=== PATIENT | female | born 1990 | race Caucasian/White ===

== ENCOUNTER 2017-06-27 12:36 | Inpatient (IN) ==
--- NOTE | 2017-06-27 11:22 | OB/GYN History & Physical ---
Date of Encounter: 06/27/17 Time of Encounter: 11:17 Assessment and Plan (1) Pyelonephritis affecting in second trimester Current visit: Yes Status: Acute Patient presents with Right flank pain that is constant for 1 day, fever, chills , nausea with vomiting x1. Febrile with extreme tenderness to palpation of right flank. Decreased UOP with increased frequency. WBC 16.1 SCr 0.67, GFR>60 UA: +nitrite, mod leuk est, micro wbc TNTC, many bacteria, Glucose >=1000, ketones 40--sent for UC Plan: -Admit to antepartum for IV abx -Ceftriaxone 1gm Q24 -IV bolus LR then MIVF LR @125/hr - Vit Daily -Tylenol 650mg Q6h prn -Zofran PRN -Regular Diet -VS per unit protocol -Daily FHT -SCDs (2) 21 weeks gestation of Current visit: Yes Status: Chronic (3) Tobacco use during Current visit: Yes Status: Chronic Qualifiers: Trimester: second trimester Qualified Code(s): O99.332 - Smoking (tobacco) complicating , second trimester History of Present Illness Chief complaint: Right flank pain HPI: Ms. Hernandez is a 27 year old female A1 at 21 and 2/7 who presents to L&D complaining of right sided back pain. She states that the pain started yesterday morning and got worse throughout the day. At noon she took tylenol and it helped for a while, but at 1800 the pain "came back with a vengence." She states that it is a sharp, constant pain at her ribs that radiates down her leg and is present at rest. She has alternated between feeling chilled and hot. She has myalgias and states it "feels like I have the flu." She did vomit x1 yesterday and was nauseated after that she thinks was secondary to pain. She also has had a cough and decreased appetite. She states she has had urinary frequency, but not much comes out every time she feels like urinating. She was also struggling with constipation and has started taking her every other day and finally was able to have 4 BMs yesterday, which were painful. She denies burning, pain, or foul odor with urination. She denies ear, nose, throat pain, wheezing, SOB, CP, palpitations, abdominal pain, diarrhea, rash, vaginal bleeding/clear fluid, vaginal itching or foul odor. She has been feeling baby move. She notes hx of miscarriage prior to this and was on progesterone throughout the first trimester. She notes no complications or issues during this . She is a current every day smoker of 0.5 PPD. Past Med Surg Social Fam HX - Past Medical History Source: patient Medical history: non-contributory Psychiatric history: no psych history - Past Surgical History Surgical History: other - Social History Smoking Status: Current every day smoker Packs per day: 0.5 Smokeless Tobacco Status: No Alcohol use: heavy Drug use: none Occupational status: employed Current living situation: Home, With Family Activity Level: Independent ambulation Recent Out of Country Travel Within the Last 8 Weeks: No Exposure or Possible Exposure to Illness During Travel: No - Family History Mother Adopted: No Hx Family Cardiac Disorders: No Hx Family Respiratory Disorders: No Hx Family Cancer: No Hx Family GI Disorders: No Hx Family Genitourinary Disorders: No Hx Family Endocrine Disorder: No Hx Family Musculoskeletal Disorders: No Hx Family Neuromuscular Disorders: No Hx Family Neurologic Disorders: No Hx Family HEENT Disorders: No Hx Family Autoimmune Disorders: No Hx Family Reproductive Disorders: No Hx Family Psychosocial Disorders: No Hx Family Medical Disorders: No Obstetrical History - Pregnancies : 2 Para: 0 Term: 0 : 0 Ab's: 1 Livin Medications and Allergies Vit Calc,Iron,Folic [ Vitamins] 1 tab PO DAILY 06/27/17 [ History] 3 Allergy/AdvReac Type Severity Reaction Status Date / Time codeine Allergy Itching Verified 06/27/17 11:05 Review of System OB All systems PM: reviewed and no additional remarkable complaints except as stated Exam - Constitutional Constitutional: well developed, well nourished, average body habitus, mild distress - HEENT HEENT: EOMI, Normocephaly - Neck Neck exam: normal inspection, supple, trachea midline - Lungs Respiratory exam: CTAB - Cardiovascular Cardiovascular exam: +S1, +S2, tachycardia - Abdomen Abdomen: Present: bowel sounds normal, gravid, non tender - Extremities Extremities exam: normal capillary refill, normal inspection, radial pulses palpable and symmetrical - Uterus Uterus exam: Present: enlarged (gravid) - Comments Comments: Right CVA tenderness, tenderness with palpation of the right flank. Results Result Diagrams: 06/27/17 11:20 06/27/17 11:20 Short CBC 06/27/17 Range/Units 11:20 WBC 16.1 H (4.3-11.1) K/mcL Hgb 12.2 (11.5-15.4) g/dL Hct 35.3 (35.3-44.9) % Plt Count 175 (140-400) K/mcL Neutrophils # 14.2 H (1.6-8.9) K/mcL BMP 06/27/17 Range/Units 11:20 Sodium 134 L (136-145) mEq/L Potassium 3.5 (3.5-4.5) mEq/L Chloride 105 (98-109) mEq/L Carbon Dioxide 19 (19-29) mEq/L BUN 6 L (7-20) mg/dL Creatinine 0.67 (0.57-1.11) mg/dL Glucose 95 (70-99) mg/dL Calcium 8.6 (8.6-10.8) mg/dL Urine 06/27/17 Range/Units 11:20 Urine Color Yellow (Yellow) Urine Clarity Hazy A (Clear) Urine pH 6.0 (5.0-8.0) pH Units Ur Specific [place] 1.021 (1.010-1.025) Urine Protein 30 H (Neg-Trace) mg/dL Urine Glucose (UA) >=1000 H (Normal) mg/dL - Attending Attestation I have seen and evaluated Ms Hernandez with the resident physician and agree with the diagnosis and plan for this patient. Plan of care also discussed with Dr. Araujo and he is in agreement as well.
[2017-06-27 11:30] LABS: Basophils % 0.2 %; Hematocrit 35.3 % (35.3-44.9); Hemoglobin 12.2 g/dL (11.5-15.4); Immature Granulocytes % 0.6 % (0-4); Lymphocytes # 0.7 K/mcL (0.6-4.6); Mean Corpuscular HGB Conc 34.6 g/dL (31.6-35.5); Mean Corpuscular Hemoglobin 32.4 pg (28.0-33.3); Mean Corpuscular Volume 93.6 fL (83.0-100.0); Monocytes # 1.1 K/mcL (0.0-1.3); Neutrophils # 14.2 K/mcL (1.6-8.9); Platelet Count 175 K/mcL (140-400); Red Blood Count 3.77 M/mcL (3.82-4.97); Red Cell Distribution Width 11.9 % (11.5-14.5); Segmented Neutrophils % 88.2 %
[2017-06-27 11:34] LABS: Bilirubin,Urine Negative (Negative); Blood,Urine Negative (Negative); Color,Urine Yellow (Yellow); Glucose,Urine (UA) >=1000 mg/dL (Normal); Ketones,Urine 40 mg/dL (Negative); Leukocyte Esterase,Urine Moderate (Negative); Nitrite,Urine Positive (Negative); Protein,Urine 30 mg/dL (Neg-Trace); Specific Gravity,Urine 1.021 (1.010-1.025); Urobilinogen,Urine Normal (Normal)
[2017-06-27 11:36] LABS: Bacteria,Urine Many per hpf (None-Few); Hyaline Casts,Urine None Seen per lpf (None-Few); Squamous Epithelial Cell,Urine Many per lpf (None-Few); WBC,Urine TNTC per hpf (0-3)
[2017-06-27 11:41] LABS: BUN/Creatinine Ratio 9 (6-26); Blood Urea Nitrogen 6 mg/dL (7-20); Carbon Dioxide 19 mEq/L (19-29); Chloride 105 mEq/L (98-109); Clarity,Urine Hazy (Clear); Potassium 3.5 mEq/L (3.5-4.5); Sodium 134 mEq/L (136-145); eGFR For African Americans > 60 (> 60)
[2017-06-27 11:42] LABS: Calcium 8.6 mg/dL (8.6-10.8); Glucose 95 mg/dL (70-99); Osmolality,Calculated 275 (280-300); eGFR For Non-African Americans > 60 (> 60)
[2017-06-27 12:13] LABS: Amphetamine Screen,Urine Negative ng/mL (Cutoff=1000); Barbiturate Screen,Urine Negative ng/mL (Cutoff=200); Benzodiazepines Screen,Urine Negative ng/mL (Cutoff=200); Cannabinoid Screen,Urine Negative ng/mL (Cutoff = 50); Cocaine Screen,Urine Negative ng/mL (Cutoff= 300); Opiate Screen,Urine Negative ng/mL (Cutoff=300); Phencyclidine Screen,Urine Negative ng/mL (Cutoff=25)
[~2017-06-27 12:36] MED LIST: Ondansetron 4 MG/2 ML VIAL IVP PRN; Ringers Solution, Lactated 1,000 ML IVC ONE; Ringers Solution, Lactated 1,000 ML IVC SCH
[2017-06-27] MEDS: Acetaminophen 325 MG TABLET PO PRN ×2 (12:48→18:51)
[2017-06-27] MEDS: *HR* HYDROmorphone 2 MG/ML SYRINGE IVP PRN ×3 (15:45→23:31)
[2017-06-27] MEDS ORDERED: Ringers Solution, Lactated 1,000 ML ONE (21:57)
[2017-06-28] MEDS: Acetaminophen 325 MG TABLET PO PRN ×3 (02:27→20:36)
[2017-06-28 06:27] LABS: Basophils % 0.2 %; Hematocrit 30.5 % (35.3-44.9); Hemoglobin 10.7 g/dL (11.5-15.4); Immature Granulocytes % 0.8 % (0-4); Lymphocytes # 0.7 K/mcL (0.6-4.6); Lymphocytes % 3.6 %; Mean Corpuscular HGB Conc 35.1 g/dL (31.6-35.5); Mean Corpuscular Hemoglobin 33.2 pg (28.0-33.3); Mean Corpuscular Volume 94.7 fL (83.0-100.0); Mean Platelet Volume 11.2 fL (9.4-12.4); Monocytes # 1.3 K/mcL (0.0-1.3); Monocytes % 6.8 %; Neutrophils # 17.5 K/mcL (1.6-8.9); Platelet Count 131 K/mcL (140-400); Red Blood Count 3.22 M/mcL (3.82-4.97); Segmented Neutrophils % 88.6 %
[2017-06-28] MEDS ORDERED: Ringers Solution, Lactated 1,000 ML ONE (07:10)
--- NOTE | 2017-06-28 08:18 | OB/GYN Progress Note ---
Date of Encounter: 06/28/17 Time of Encounter: 08:18 - Assessment and Plan (1) Pyelonephritis affecting in second trimester Current Visit: Yes Status: Acute Patient better today, continues to have right flank pain worse with full bladder , Afebrile since 0230 UA: +nitrite, mod leuk est, micro wbc TNTC, many bacteria, Glucose >=1000, ketones 40 UC: E. coli, sensitivities pending WBC 19.8 >16.1 Plan: -Ceftriaxone 1gm Q24 -Start Gentamicin 90mg Q8hr -Renal US -Discontinue IVF, encourage good PO intake -CBC in AM - Vit Daily -Tylenol 650mg Q6h prn -Zofran PRN -Regular Diet -VS per unit protocol -Daily FHT -SCDs (2) 21 weeks gestation of Current Visit: Yes Status: Chronic (3) Tobacco use during Current Visit: Yes Status: Chronic Qualifiers: Trimester: second trimester Qualified Code(s): O99.332 - Smoking (tobacco) complicating , second trimester Subjective - Subjective Principal diagnosis: Pyelonephritis Interval history: Patient states that she feels much better today. She had a fever overnight, but has not since her tylenol. She had some nausea, but it is getting better with eating. She is tolerating food well. She has some mild myalgias and right flank pain that is worse with having to urinate. Antepartum ROS: movement normal Objective - Vital Signs Vital Signs: Vital Signs Temp Pulse Pulse Resp BP Pulse Ox 06/28/17 07:41 97.6 F 78 12 88/58 97 06/28/17 04:30 97.7 F 87 16 101/55 97 06/28/17 02:30 100.2 F H 06/27/17 23:25 97.9 F 92 16 99/58 99 06/27/17 22:04 98.0 F 06/27/17 18:53 102 F H 109 18 113/58 94 06/27/17 15:00 99.6 F 94 16 105/70 97 06/27/17 12:37 100.4 F H 99 16 117/69 95 06/27/17 12:36 99 14 Intake and Output 06/27/17 06/28/17 06/28/17 23:59 07:59 15:59 Output Total 700 / 700 250 / 250 Balance -700 / -700 -250 / -250 Output: Urine 700 / 700 250 / 250 Other: Stool Characteristics Normal for Patient Weight 51.982 kg Patient Weight 06/28/17 23:59 Weight 51.982 kg - Exam Auscultation: bilateral: normal Abdomen: Present: normal appearance, soft, gravid Uterus: Present: normal Comments: General: Patient appears well, alert and oriented x3 Heart: RRR w/o MRG, no edema Lungs: CTAB Abdomen: soft, non-tender, BS normal, gravid Back: CVA tenderness on the right Skin: warm, dry - Labs Labs: Abnormal lab results WBC 19.8 K/mcL (4.3-11.1) H 06/28/17 06:05 RBC 3.22 M/mcL (3.82-4.97) L 06/28/17 06:05 Hgb 10.7 g/dL (11.5-15.4) L D 06/28/17 06:05 Hct 30.5 % (35.3-44.9) L 06/28/17 06:05 Plt Count 131 K/mcL (140-400) L 06/28/17 06:05 Neutrophils # 17.5 K/mcL (1.6-8.9) H 06/28/17 06:05 Sodium 134 mEq/L (136-145) L 06/27/17 11:20 BUN 6 mg/dL (7-20) L 06/27/17 11:20 Calculated Osmolality 275 (280-300) L 06/27/17 11:20 Urine Clarity Hazy (Clear) A 06/27/17 11:20 Urine Protein 30 mg/dL (Neg-Trace) H 06/27/17 11:20 Urine Glucose (UA) >=1000 mg/dL (Normal) H 06/27/17 11:20 Urine Ketones 40 mg/dL (Negative) H 06/27/17 11:20 Urine Nitrite Positive (Negative) A 06/27/17 11:20 Ur Leukocyte Esterase Moderate (Negative) H 06/27/17 11:20 Urine Microscopic RBC 3-5 per hpf (0-3) H 06/27/17 11:20 Urine Microscopic WBC TNTC per hpf (0-3) H 06/27/17 11:20 Ur Squamous Epith Cells Many per lpf (None-Few) H 06/27/17 11:20 Urine Bacteria Many per hpf (None-Few) H 06/27/17 11:20 Ur Culture Indicated? YES (NO) A 06/27/17 11:20 Attestation: My signature below is to certify that this patient is under my care and that I had a [id number] encounter with this patient. Contreras Angel CNM
[2017-06-28] MEDS: *HR* HYDROmorphone 2 MG/ML SYRINGE IVP PRN ×2 (09:33→12:38)
[2017-06-28] MEDS: Prenatal Vit/FA 1 EACH TABLET PO SCH (09:34)
[2017-06-28] MEDS: Gentamicin 90 MG in 0.9 % Sodium Chloride 100 ML IVPB SCH ×2 (10:09→18:01)
[2017-06-28] MEDS ORDERED: *HR* Nalbuphine 20 MG/ML AMPUL IVP PRN (17:36)
[2017-06-28] MEDS: Ringers Solution, Lactated 1,000 ML IVC SCH (18:02)
[2017-06-29] MEDS: Gentamicin 90 MG in 0.9 % Sodium Chloride 100 ML IVPB SCH ×2 (02:15→10:10)
[2017-06-29] MEDS: Acetaminophen 325 MG TABLET PO PRN ×2 (02:24→08:44)
[2017-06-29] MEDS: Ringers Solution, Lactated 1,000 ML IVC SCH (05:32)
[2017-06-29 06:11] LABS: Hemoglobin 9.2 g/dL (11.5-15.4); Mean Corpuscular HGB Conc 34.1 g/dL (31.6-35.5); Mean Corpuscular Hemoglobin 32.4 pg (28.0-33.3); Mean Corpuscular Volume 95.1 fL (83.0-100.0); Mean Platelet Volume 11.3 fL (9.4-12.4); Platelet Count 103 K/mcL (140-400); Red Blood Count 2.84 M/mcL (3.82-4.97); Red Cell Distribution Width 12.2 % (11.5-14.5)
[2017-06-29 07:45] VITALS: BP 96/59
[2017-06-29] MEDS: Prenatal Vit/FA 1 EACH TABLET PO SCH (08:43)
--- NOTE | 2017-06-29 09:50 | Discharge Summary ---
Date of Encounter: 06/29/17 Time of Encounter: 09:50 - Discharge Diagnosis (1) Tobacco use during Priority: Secondary Status: Chronic Comments: Smoking cessation education offered. (2) Pyelonephritis affecting in second trimester Priority: Primary Status: Acute Comments: Treated with IV antibiotics Discharge with RX of Macrobid x 7 days (3) 21 weeks gestation of Priority: Secondary Status: Chronic Comments: Admitted for pyelonephritis. FHT as ordered. - Discharge Medications Prescriptions: Nitrofurantoin Monohyd/M-Cryst [Macrobid 100 mg Capsule] 100 mg PO BID #14 capsule Home Medications: Vit Calc,Iron,Folic [ Vitamins] 1 tab PO DAILY 06/27/17 [ History] Acetaminophen [Tylenol] 650 mg PO Q6HR PRN tablet 06/29/17 [Rx] Nitrofurantoin Monohyd/M-Cryst [Macrobid 100 mg Capsule] 100 mg PO BID #14 capsule 06/29/17 [Rx] Allergies/Adverse Reactions: 3 Allergy/AdvReac Type Severity Reaction Status Date / Time codeine Allergy Itching Verified 06/27/17 11:05 Data Procedures and tests throughout hospitalization: Laboratory Tests 06/27/17 06/27/17 06/27/17 11:20 11:20 11:20 WBC 16.1 H RBC 3.77 L Hgb 12.2 Hct 35.3 MCV 93.6 MCH 32.4 MCHC 34.6 RDW 11.9 Plt Count 175 MPV 11.0 Immature Gran % 0.6 Seg Neutrophils % 88.2 Lymphocytes % 4.0 Monocytes % 7.0 Eosinophils % 0.0 Basophils % 0.2 Neutrophils # 14.2 H Lymphocytes # 0.7 Monocytes # 1.1 Eosinophils # 0.0 Basophils # 0.0 Sodium Potassium Chloride Carbon Dioxide BUN Creatinine Est GFR ( Amer) Est GFR (Non-Af Amer) BUN/Creatinine Ratio Glucose Calculated Osmolality Calcium Urine Color Yellow Urine Clarity Hazy A Urine pH 6.0 Ur Specific [place] 1.021 Urine Protein 30 H Urine Glucose (UA) >=1000 H Urine Ketones 40 H Urine Blood Negative Urine Nitrite Positive A Urine Bilirubin Negative Urine Urobilinogen Normal Ur Leukocyte Esterase Moderate H Urine Microscopic RBC 3-5 H Urine Microscopic WBC TNTC H Ur Squamous Epith Cells Many H Urine Bacteria Many H Hyaline Casts None Seen Ur Culture Indicated? YES A Urine Opiates Screen Negative Ur Barbiturates Screen Negative Ur Phencyclidine Scrn Negative Ur Amphetamines Screen Negative U Benzodiazepines Scrn Negative Urine Cocaine Screen Negative U Marijuana (THC) Screen Negative 06/27/17 06/28/17 06/29/17 11:20 06:05 05:57 WBC 19.8 H 11.6 H RBC 3.22 L 2.84 L Hgb 10.7 L D 9.2 L D Hct 30.5 L 27.0 L MCV 94.7 95.1 MCH 33.2 32.4 MCHC 35.1 34.1 RDW 12.0 12.2 Plt Count 131 L 103 L MPV 11.2 11.3 Immature Gran % 0.8 Seg Neutrophils % 88.6 Lymphocytes % 3.6 Monocytes % 6.8 Eosinophils % 0.0 Basophils % 0.2 Neutrophils # 17.5 H Lymphocytes # 0.7 Monocytes # 1.3 Eosinophils # 0.0 Basophils # 0.0 Sodium 134 L Potassium 3.5 Chloride 105 Carbon Dioxide 19 BUN 6 L Creatinine 0.67 Est GFR ( Amer) > 60 Est GFR (Non-Af Amer) > 60 BUN/Creatinine Ratio 9 Glucose 95 Calculated Osmolality 275 L Calcium 8.6 Urine Color Urine Clarity Urine pH Ur Specific [place] Urine Protein Urine Glucose (UA) Urine Ketones Urine Blood Urine Nitrite Urine Bilirubin Urine Urobilinogen Ur Leukocyte Esterase Urine Microscopic RBC Urine Microscopic WBC Ur Squamous Epith Cells Urine Bacteria Hyaline Casts Ur Culture Indicated? Urine Opiates Screen Ur Barbiturates Screen Ur Phencyclidine Scrn Ur Amphetamines Screen U Benzodiazepines Scrn Urine Cocaine Screen U Marijuana (THC) Screen Labs on day of discharge: Labs from last 24 hours 06/29/17 05:57 WBC 11.6 H RBC 2.84 L Hgb 9.2 L D Hct 27.0 L MCV 95.1 MCH 32.4 MCHC 34.1 RDW 12.2 Plt Count 103 L MPV 11.3 - Impressions ITS Impressions Retroperitoneum Ultrasound 06/28/17 08:30 IMPRESSION: Mild bilateral hydronephrosis. Normal sonographic appearance of the kidneys and bladder. D/ / 06/28/2017 09:37:23 Lidya Kang MD / faizan Interpreting Provider: Lidya Kang MD Date of admission: 06/27/17 10:38 Primary care physician: PCP NONE Discharging clinician: Mirian Weber Anticipated date of discharge: 06/29/17 - Patient Status Disposition: Home, Self-Care Condition: Good Functional capacity at discharge: independent ambulation - Discharge Instructions Follow Up With: NONE,PCP [Primary Care Provider] - - Diet and Activity Activity: increase activity as tolerated Diet: advance to your usual diet Hospital Course [facility] [place] [facility] Hospital course: Pt resting in bed. Denies pain at this time. States she has mild pain occasionally. Encouraged to continue Tylenol once she goes home. Plan of care discussed. Patient aware she will be discharged after her noon dose of antibiotics and is agreeable with this plan. Informed she will be discharged with a Rx for Macrobid that she will need to take twice daily for 7 days. Pt verbalized understanding. States she has an appointment with Dr. Callahan in approximately 3 weeks. Time Attestation: Total time spent providing and/or coordinating discharge services: Time Spent: Less than 30 minutes Exam - Constitutional Vitals: Temp Pulse Resp BP Pulse Ox 97.8 F 77 16 96/59 94 06/29/17 07:44 06/29/17 07:44 06/29/17 07:44 06/29/17 07:44 06/29/17 04:00 General appearance IM: A&O X 3, pleasant, no acute distress - Respiratory Respiratory exam: Present: CTAB - Cardiovascular Cardiovascular exam IM: Present: RRR, +S1, +S2 - GI/Abdominal GI/Abdominal exam IM: normal bowel sounds, soft - Rectal Rectal exam: deferred - Extremities Exam Extremities exam IM: Present: full ROM, normal capillary refill, normal inspection - Neurological Exam Neurological exam: oriented X3 - VTE Reasons for not Prescribing Prophylaxis: Treatment not Indicated - Low risk for VTE Documentation of Mechanical Device: Intermittent pneumatic compression device
[2017-06-29] MEDS ORDERED: Aminoglycoside Consult 1 EACH MC ONE (13:56)
== END 2017-06-29 13:57 | disposition home or self-care (01) | DRG 566 ==
LOC: 1NENULAB → 1NENUOBS 12:36
PROVIDERS: ADMIT Obstetrics & Gynecology; ATTEND Obstetrics & Gynecology

== ENCOUNTER 2017-10-25 10:14 | Observation (INO) ==
--- NOTE | 2017-10-25 10:55 | OB/GYN History & Physical ---
Date of Encounter: 10/25/17 Time of Encounter: 10:49 Assessment and Plan (1) Headache Status: Acute Addendum: PIH labs normal UPC ratio normal NST reactive UDS negative Offered norco, declines Accepts single po dose of magnesium and tylenol Follow up in office for routine care as scheduled. Patient with headache that started at midnight. We will perform PIH rule out at this time. Patient denies any concerns or complaints this time. Headache 6 out of 10 at this time. Qualifiers: Headache type: unspecified Headache chronicity pattern: acute headache Intractability: intractable Qualified Code(s): R51 - Headache (2) 38 weeks gestation of Status: Acute Patient 38 weeks 3 days gestation. Denies any vaginal bleeding, cramping or pain. Will place patient on monitor and perform PIH work up at this time. (3) Tobacco use during Status: Chronic Patient smokes 5 cigarettes per day. Will provide nicotine patch as needed. Qualifiers: Trimester: third trimester Qualified Code(s): O99.333 - Smoking (tobacco) complicating , third trimester History of Present Illness Chief complaint: New headache onset HPI: Ms. Hernandez is a 27 year old female 010 presenting to labor and delivery chief complaint of headache. Patient has a history of one spontaneous in November 2016. She is blood type B-. Rubella immune. Group B negative, HIV negative, Treponema negative. She failed her 1 hour glucose test but passed her 3 hour glucose test. She does abuse tobacco throughout this without 5 cigarettes per day. She is 38 weeks 3 days. Patient states for the last 3 nights between 11 PM and midnight she has woken up and nausea and vomiting. She states this she felt in the beginning of her with morning sickness. Patient states last evening around this time she woke up with a severe 10 out of 10 headache located in the left frontal area. She took Tylenol but the headache has not gone away. She was told to come to labor and delivery of her headache did not resolve with Tylenol. Patient states her pain is now 6-7 out of 10. Acute left frontal area. Does not radiate. No neurological findings. No dizziness. No chest pain, fevers or recent illnesses. Denies any vaginal bleeding, cramping or pain. Denies any urinary symptoms. States positive movement. Past Med Surg Social Fam HX - Past Medical History Medical history: non-contributory Psychiatric history: no psych history - Past Surgical History Surgical History: other - Social History Smoking Status: Current every day smoker Smokeless Tobacco Status: No Alcohol use: heavy Drug use: none - Family History Mother Adopted: No Hx Family Cardiac Disorders: No Hx Family Respiratory Disorders: No Hx Family Cancer: No Hx Family GI Disorders: No Hx Family Endocrine Disorder: No Hx Family Neuromuscular Disorders: No Hx Family Neurologic Disorders: No Hx Family HEENT Disorders: No Hx Family Autoimmune Disorders: No Obstetrical History - Pregnancies : 2 Para: 0 Term: 0 : 0 Ab's: 1 Livin Medications and Allergies Vit Calc,Iron,Folic [ Vitamins] 1 tab PO DAILY 06/27/17 [ History] Acetaminophen [Tylenol] 650 mg PO Q6HR PRN tablet 06/29/17 [Rx] 3 Allergy/AdvReac Type Severity Reaction Status Date / Time codeine Allergy Itching Verified 06/27/17 11:05 Review of System OB All systems PM: reviewed and no additional remarkable complaints except as stated - Neurological Nerological: headache(s) Exam - Constitutional Constitutional: well developed, well nourished, no acute distress, average body habitus - HEENT HEENT: Normocephaly, Mucus Membranes Moist - Neck Neck exam: full ROM, normal inspection - Lungs Respiratory exam: CTAB - Cardiovascular Cardiovascular exam: RRR - Abdomen Abdomen: Present: bowel sounds normal, gravid, non tender - Extremities Extremities exam: normal inspection Deep Tendon Reflex Grade: 1+ Diminished - Uterus Uterus exam: Present: enlarged (gravid), normal contour - Comments Comments: Cranial exam WNL. Cerebellar exam WNL. No clonus noted on exam. Nonfocal neurological exam. NST - category I tracing. Results Result Diagrams: 10/25/17 10:55 10/25/17 10:55 All other labs normal. - VTE Reasons for not Prescribing Prophylaxis: Not indicated-Anticoagulated or INR therapeutic - Attending Attestation I examined this patient and my medical decision-making was reviewed with the Resident Physician. I agree with the documented findings, disposition and treatment plan as described. Contreras Angel CNM
[2017-10-25 11:13] LABS: Amphetamine Screen,Urine Negative ng/mL (Cutoff=1000); Barbiturate Screen,Urine Negative ng/mL (Cutoff=200); Benzodiazepines Screen,Urine Negative ng/mL (Cutoff=200); Cannabinoid Screen,Urine Negative ng/mL (Cutoff = 50); Cocaine Screen,Urine Negative ng/mL (Cutoff= 300); Opiate Screen,Urine Negative ng/mL (Cutoff=300); Phencyclidine Screen,Urine Negative ng/mL (Cutoff=25)
[2017-10-25 11:14] LABS: Protein/Creatinine Ratio,Urine 0.18 mg/mg (0.00-0.20)
[2017-10-25] MEDS ORDERED: Magnesium Oxide 400 MG TABLET PO SCH (11:15)
[2017-10-25 11:18] LABS: Basophils # 0.1 K/mcL (0.0-0.2); Basophils % 0.5 %; Eosinophils % 0.4 %; Hematocrit 37.5 % (35.3-44.9); Hemoglobin 12.4 g/dL (11.5-15.4); Immature Granulocytes % 0.7 % (0-4); Lymphocytes # 2.2 K/mcL (0.6-4.6); Lymphocytes % 21.3 %; Mean Corpuscular HGB Conc 33.1 g/dL (31.6-35.5); Mean Corpuscular Hemoglobin 30.8 pg (28.0-33.3); Mean Corpuscular Volume 93.3 fL (83.0-100.0); Mean Platelet Volume 12.6 fL (9.4-12.4); Monocytes # 0.5 K/mcL (0.0-1.3); Monocytes % 4.9 %; Neutrophils # 7.4 K/mcL (1.6-8.9); Platelet Count 223 K/mcL (140-400); Red Blood Count 4.02 M/mcL (3.82-4.97); Red Cell Distribution Width 12.6 % (11.5-14.5); Segmented Neutrophils % 72.2 %
[2017-10-25 11:26] LABS: Alanine Aminotransferase 6 Units/L (7-52); Aspartate Amino Transferase 11 Units/L (13-39); BUN/Creatinine Ratio 17 (6-26); Blood Urea Nitrogen 10 mg/dL (6-20); Lactate Dehydrogenase 130 Units/L (140-271); Uric Acid 4.7 mg/dL (2.3-7.6); eGFR For African Americans > 60 (> 60); eGFR For Non-African Americans > 60 (> 60)
[2017-10-25 11:54] LABS: Platelet Estimate Normal (Normal)
== END 2017-10-25 12:04 | disposition home or self-care (01) ==
LOC: 1NENULAB
PROVIDERS: ADMIT Obstetrics & Gynecology; ATTEND Obstetrics & Gynecology

== ENCOUNTER 2017-10-29 08:57 | Inpatient (IN) ==
[2017-10-29 07:11] LABS: Bilirubin,Urine Negative (Negative); Blood,Urine Negative (Negative); Clarity,Urine Clear (Clear); Color,Urine Yellow (Yellow); Glucose,Urine (UA) Normal (Normal); Ketones,Urine Negative (Negative); Leukocyte Esterase,Urine Negative (Negative); Nitrite,Urine Negative (Negative); Protein,Urine Negative (Neg-Trace); Specific Gravity,Urine 1.007 (1.010-1.025); Urobilinogen,Urine Normal (Normal)
[2017-10-29 08:09] LABS: Basophils # 0.1 K/mcL (0.0-0.2); Basophils % 0.3 %; Eosinophils % 0.3 %; Hematocrit 39.6 % (35.3-44.9); Hemoglobin 13.3 g/dL (11.5-15.4); Immature Granulocytes % 0.6 % (0-4); Lymphocytes # 2.5 K/mcL (0.6-4.6); Lymphocytes % 16.6 %; Mean Corpuscular HGB Conc 33.6 g/dL (31.6-35.5); Mean Corpuscular Hemoglobin 30.9 pg (28.0-33.3); Mean Corpuscular Volume 92.1 fL (83.0-100.0); Monocytes # 0.6 K/mcL (0.0-1.3); Monocytes % 4.2 %; Neutrophils # 11.9 K/mcL (1.6-8.9); Platelet Count 261 K/mcL (140-400); Red Cell Distribution Width 12.8 % (11.5-14.5)
[2017-10-29] MEDS: Ringers Solution, Lactated 1,000 ML IVC SCH ×2 (08:11→10:15)
[~2017-10-29 08:57] MED LIST changes: +*HR* FentaNYL (PF) 100 MCG/2 ML VIAL EP ONE; +*HR* FentaNYL (PF) 100 MCG/2 ML VIAL ONE; +Epidural Premix (fent/bupiv) 110 ML EP ONE; +Epidural Premix (fent/bupiv) 110 ML EP SCH; +Famotidine 20 MG/2 ML VIAL IVP PRN; +Mag Hydrox/Al Hydrox/Simeth 30 ML UDC PO PRN; +Naloxone 0.4 MG/ML INJ IVP PRN; -Ondansetron 4 MG/2 ML VIAL IVP PRN; -Ringers Solution, Lactated 1,000 ML IVC ONE; -Ringers Solution, Lactated 1,000 ML IVC SCH
--- NOTE | 2017-10-29 08:57 | Anesthesia Evaluation PreOp ---
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: Denies Any Significant HX Other Medical History: GERD Anesthesia History: No Prior Anesthetic Complications : Yes Test: Positive Alcohol Use: none Drug use: none Medications and Allergies Vit Calc,Iron,Folic [ Vitamins] 1 tab PO DAILY 06/27/17 [ History] Acetaminophen [Tylenol] 650 mg PO Q6HR PRN tablet 06/29/17 [Rx] 3 Allergy/AdvReac Type Severity Reaction Status Date / Time codeine Allergy Itching Verified 10/29/17 07:19 - Meds/Allergy Pre-op Review Medications Reviewed: Yes Allergies Reviewed: Yes Beta Blockers on Current Med List: No Anesthesia Results - Labs 10/29/17 08:00 Anesthesia Exam 124/78 60 16 fht 133 Height: 5'2" Weight: 56 NPO (# of Hours): 5 Pain Scale: 8 Pain Scale Used: Numeric (1 - 10) - HEENT Pupil (Motor): Pupils equal Mallampati: II Teeth: Normal Oral Opening: Greater than 3 - DESULFURIZER MACHINE LOC: Oriented DESULFURIZER MACHINE Motor: Normal RUE, Normal LUE, Normal RLE, Normal LLE, Normal Face DESULFURIZER MACHINE Sensory: Normal: RUE, LUE, RLE, LLE, Face - Cardiac Rhythm: Regular Murmur: None - Pulmonary Breath Sounds: bilateral Clear Respiratory Effort: Symmetrical Anesthesia Assess/Plan ASA Score: 2 Modified [place] Scale for Level of Consciousness: Cooperative, oriented, and tranquil Anesthetic Plan: Regional Autologous Blood: No Monitoring Plan: Standard Monitors (risks discussed, questions answered, consented) Recovery Plan: Other
--- NOTE | 2017-10-29 09:00 | Anesthesia Procedures ---
Date of Encounter: 10/29/17 Time of Encounter: 08:58 Procedures: Anesthesia - Epidural/Spinal Patient ID/Chart reviewed: Yes Patient examined: Yes OB Eval: Gestational age: 37 OB Eval: : 2 OB Eval: Hx Para: 0 OB Eval: Dilated at (cm): 5 OB Eval: Contractions: Non-stressed pattern Supplemental Oxygen: None/Room Air Site Prep: Aseptic Technique, Sterile prep and drape, 0.5% Chlorhexidine/Alcohol Patient position: upright Local Anesthetic: Lidocaine 1% Amount of Local Anesthetic used: 3 Touhy Needle Gauge: 18 Touhy Needle Depth (cm): 4 Catheter Depth at Skin (cm): 15 Test Dose (1.5% Lido + Epi): Volume given (mls): 3 Test Dose Result: Negative Loading Dose: Fentanyl (mcg): 10 Loading Dose: Other: rop 0.2% 10 cc Loading Dose Administered: Thru Touhy Needle Infusion Med: 0.125% Bupivacaine w/ 2 mcg/ml Fentanyl Infusion Rate (mls/hr): [address]: Tegaderm Interspace Used: L2-L3 Loss of Resistance (MIRANDA): Yes Blood: No CSF: No Paresthesia: No Procedure: aseptic, priscila wll effective Vitals + FHT's: 124/78 60 16 fht 133
--- NOTE | 2017-10-29 09:03 | OB/GYN History & Physical ---
Date of Encounter: 10/29/17 Time of Encounter: 09:01 Assessment and Plan (1) 39 weeks gestation of Current visit: Yes Status: Acute Patient 39 weeks and 0 days. Frequent contractions. Has progressed while in labor and delivery from 4 cm to 5 cm. We will prepare for . Patient would like an epidural. (2) Tobacco use during Current visit: Yes Status: Chronic We will provide the patient with nicotine patch Qualifiers: Trimester: third trimester Qualified Code(s): O99.333 - Smoking (tobacco) complicating , third trimester History of Present Illness HPI: Ms. Hernandez is a 27 year old female 010 presenting to labor and delivery chief complaint of concern for active labor. Patient has a history of one spontaneous in November 2016. She is blood type B-. Rubella immune. Group B negative, HIV negative, Treponema negative. She failed her 1 hour glucose test but passed her 3 hour glucose test. She does abuse tobacco throughout this without 5 cigarettes per day. She is 39 weeks 0days. No dizziness. No chest pain, fevers or recent illnesses. Denies any vaginal bleeding, or leakage of fluids. Denies any urinary symptoms. States positive movement. Patient states yesterday afternoon she started having contractions. They were not consistent at that time. This morning it continued and became consistent and she came into labor and delivery. She is seen in the office on Monday and was not dilated. When she came to labor and delivery she was dilated to 4 cm. Patient currently taking Prilosec for GERD. Otherwise no other complications during this . Past Med Surg Social Fam HX - Past Medical History Medical history: non-contributory Psychiatric history: no psych history - Past Surgical History Surgical History: other - Social History Smoking Status: Current every day smoker Smokeless Tobacco Status: No Alcohol use: none Drug use: none - Family History Mother History Unknown: Yes Adopted: No Hx Family Cardiac Disorders: No Hx Family Respiratory Disorders: No Hx Family Cancer: No Hx Family GI Disorders: No Hx Family Endocrine Disorder: No Hx Family Neuromuscular Disorders: No Hx Family Neurologic Disorders: No Hx Family HEENT Disorders: No Hx Family Autoimmune Disorders: No Obstetrical History - Pregnancies : 2 Para: 0 Term: 0 : 0 Ab's: 1 Livin Medications and Allergies Vit Calc,Iron,Folic [ Vitamins] 1 tab PO DAILY 06/27/17 [ History] Acetaminophen [Tylenol] 650 mg PO Q6HR PRN tablet 06/29/17 [Rx] 3 Allergy/AdvReac Type Severity Reaction Status Date / Time codeine Allergy Itching Verified 10/29/17 07:19 Review of System OB All systems PM: reviewed and no additional remarkable complaints except as stated Exam - Constitutional Constitutional: well developed, well nourished, no acute distress, average body habitus - HEENT HEENT: Normocephaly, Mucus Membranes Moist - Neck Neck exam: full ROM, normal inspection - Lungs Respiratory exam: CTAB - Cardiovascular Cardiovascular exam: RRR - Abdomen Abdomen: Present: bowel sounds normal, gravid, non tender - Extremities Extremities exam: normal inspection Deep Tendon Reflex Grade: 2+ Normal - Uterus Uterus exam: Present: enlarged (gravid), normal contour Results Result Diagrams: 10/29/17 08:00 Abnormal lab results WBC 15.2 K/mcL (4.3-11.1) H 10/29/17 08:00 Neutrophils # 11.9 K/mcL (1.6-8.9) H 10/29/17 08:00 Ur Specific [place] 1.007 (1.010-1.025) L 10/29/17 06:50 All other labs normal. - VTE Reasons for not Prescribing Prophylaxis: Treatment not Indicated - Low risk for VTE - Attending Attestation I examined this patient and my medical decision-making was reviewed with the Resident Physician. I agree with the documented findings, disposition and treatment plan as described. Contreras Angel CNM
[2017-10-29 09:44] LABS: Amphetamine Screen,Urine Negative ng/mL (Cutoff=1000); Barbiturate Screen,Urine Negative ng/mL (Cutoff=200); Benzodiazepines Screen,Urine Negative ng/mL (Cutoff=200); Cannabinoid Screen,Urine Negative ng/mL (Cutoff = 50); Cocaine Screen,Urine Negative ng/mL (Cutoff= 300); Opiate Screen,Urine Negative ng/mL (Cutoff=300); Phencyclidine Screen,Urine Negative ng/mL (Cutoff=25)
--- NOTE | 2017-10-29 11:38 | OB Labor Progress Note ---
Date of Encounter: 10/29/17 Time of Encounter: 09:30 Labor Progress Note - Subjective Subjective: still doing well not feeling the contractions epidural still working well - Cervix Cervix: /+1 AROM clear fluid - Heart Tones Heart Tones: FHT's 140's reactive - [place]: contractions every 2-3 min - Plan Plan: continue current care anticipate
--- NOTE | 2017-10-29 11:52 | OB Labor Progress Note ---
Date of Encounter: 10/29/17 Time of Encounter: 11:30 Labor Progress Note - Subjective Subjective: still comfortable - Cervix Cervix: 8/90/+1 - Heart Tones Heart Tones: FHT's 140's reactive - [place]: contractions every 2-3 min - Plan Plan: anticipate
[2017-10-29] MEDS ORDERED: Lidocaine 1% 20 ML MDV ONE (12:43)
[2017-10-29] MEDS ORDERED: Oxytocin 20 units/ LR 1000 mL 20 UNIT/1,000 ML BAG IVC ONE (12:46)
--- NOTE | 2017-10-29 13:24 | OB/GYN Procedure Note ---
Delivery - Delivery Date: 10/29/17 Provider: Philippe Callahan Intrapartum events: other(please specify) ( bradycardia category 2 strip) Delivery induction: none Delivery augmentation: rupture of membranes Delivery monitor: external FHT, external uterine Anesthesia: epidural Estimated Blood Loss: 100 - Infant (s) A Infant Delivery Date: 10/29/17 Delivery Time: 12:45 Presentation: vertex Position: DMITRY Route of delivery: vacuum extraction Gender: Male Viability: Viable Pounds: 6 Ounces: 0 Weight Gram: 0 g at 1 minute: 8 at 5 mins: 9 Shoulder Dystocia: not encountered Shoulder Dystocia Maneuvers: Flakita maneuver Specimens collected: cord blood Placenta: spontaneous Cord: nuchal cord (X3), nuchal reduced - Repair Episiotomy: midline - Complications Delivery complications: none Delivery comments: Patient is a 27-year-old 2 para 0010 at 39-0/7 weeks who presented in active labor. Patient was 4 cm on admission and made progression on her own to 5-6 in greatest patient received an epidural she was artificially ruptured when she was 65 with clear fluid patient was progressing nicely she got to anterior lip and we had bradycardia down to 7080s not coming back up. We were able to reduce the cervical lip tones were not coming up patient was pushing effectively decide this time we would do a vacuum extraction since we can get the baby out faster this way versus section. Patient placed in lithotomy position in midline episiotomy was cut and vacuum was applied and we delivered a viable male in right occiput anterior presentation at 1245. There was nuchal cord 3 which was loose and reduced there was no meconium the was bulb suctioned on the abdomen. Apgars were 8 at 1 minute, 9 at times , infant weight was 6 lbs. 0 oz. Placenta was then delivered spontaneously 3 vessel cord, pipe fitter ammonia Dr. Callahan, butcher assistant Padma Damon PGY1, anesthesia epidural estimated blood loss 100 mL. Midline episiotomy was repaired with a 3-0 Vicryl in usual fashion cervix and vagina was visualized intact. Patient will be observed 2 hours before being taken to the floor. - Disposition Mom disposition: stable in LDR disposition: stable in LDR
[2017-10-29] MEDS ORDERED: *HR* HYDROcodone/Acet 5/325 mg TABLET PO PRN (15:55)
[2017-10-29] MEDS ORDERED: Measles/Mumps/Rubella Vacc 0.5 ML VIAL SQ PRN (15:55)
[2017-10-29] MEDS ORDERED: Rho Immune Globulin 1,500 UNIT SYRINGE IM PRN (15:55)
[2017-10-29] MEDS ORDERED: Acetaminophen 325 MG TABLET PO PRN (15:55)
[2017-10-29] MEDS ORDERED: Oxytocin 20 units/ LR 1000 mL 20 UNIT/1,000 ML BAG IVC SCH (15:55)
[2017-10-29] MEDS: Ibuprofen 600 MG TABLET PO PRN (18:38)
[2017-10-30] MEDS: Ibuprofen 600 MG TABLET PO PRN ×2 (00:14→07:58)
[2017-10-30 04:42] LABS: Basophils # 0.1 K/mcL (0.0-0.2); Basophils % 0.4 %; Eosinophils # 0.1 K/mcL (0.0-0.6); Eosinophils % 0.8 %; Hematocrit 35.2 % (35.3-44.9); Immature Granulocytes % 0.7 % (0-4); Lymphocytes # 3.8 K/mcL (0.6-4.6); Lymphocytes % 27.3 %; Mean Corpuscular HGB Conc 33.2 g/dL (31.6-35.5); Mean Corpuscular Hemoglobin 30.9 pg (28.0-33.3); Mean Corpuscular Volume 92.9 fL (83.0-100.0); Mean Platelet Volume 12.3 fL (9.4-12.4); Monocytes # 0.6 K/mcL (0.0-1.3); Monocytes % 4.5 %; Neutrophils # 9.1 K/mcL (1.6-8.9); Platelet Count 256 K/mcL (140-400); Red Blood Count 3.79 M/mcL (3.82-4.97); Red Cell Distribution Width 12.7 % (11.5-14.5); Segmented Neutrophils % 66.3 %
[2017-10-30 04:43] LABS: Hemoglobin 11.7 g/dL (11.5-15.4)
[2017-10-30 07:54] VITALS: BP 115/69
[2017-10-30] MEDS ORDERED: Prenatal Vit/FA 1 EACH TABLET PO SCH (09:00)
[2017-10-30] MEDS ORDERED: NON-FORMULARY MEDICATION 1 EACH EACH (Prenatal Vit Calc,Iron,Folic [Prenatal Vitamins] 1 T PO SCH (09:00)
--- NOTE | 2017-10-30 09:05 | Discharge Summary ---
Addendum entered and electronically signed by Trang Garcia CNM 10/30/17 10:39: [facility] reviewed by Dr. Chavira Original Note: Date of Encounter: 11/08/17 Time of Encounter: 10:30 - Discharge Diagnosis (1) Normal vaginal delivery Priority: Primary Status: Acute Comments: Pt meeting all milestones. (2) Tobacco use during Priority: Secondary Status: Chronic Qualifiers: Trimester: third trimester Qualified Code(s): O99.333 - Smoking (tobacco) complicating , third trimester (3) 39 weeks gestation of Priority: Secondary Status: Resolved (4) Contraceptive education Priority: Secondary Status: Acute Comments: Pt planning to get an IUD at her visit. She declines any contraceptive prior to discharge. - Discharge Medications Prescriptions: HYDROcodone/Acet 5/325 mg [[place] 5-325 mg] 1 tab PO Q6HR PRN #5 tablet PRN Reason: Moderate Pain (4-6) Ibuprofen [Motrin] 600 mg PO Q6HR PRN #40 tablet PRN Reason: Cramping Docusate [Colace] 100 mg PO BID #10 capsule Home Medications: Vit Calc,Iron,Folic [ Vitamins] 1 tab PO DAILY 06/27/17 [ History] Docusate [Colace] 100 mg PO BID #10 capsule 10/30/17 [Rx] HYDROcodone/Acet 5/325 mg [[place] 5-325 mg] 1 tab PO Q6HR PRN #5 tablet 10/30/17 [Rx] Ibuprofen [Motrin] 600 mg PO Q6HR PRN #40 tablet 10/30/17 [Rx] Allergies/Adverse Reactions: 3 Allergy/AdvReac Type Severity Reaction Status Date / Time codeine Allergy Itching Verified 10/29/17 07:19 Data Procedures and tests throughout hospitalization: Laboratory Tests 10/29/17 10/29/17 10/29/17 06:50 06:50 08:00 WBC 15.2 H RBC 4.30 Hgb 13.3 Hct 39.6 MCV 92.1 MCH 30.9 MCHC 33.6 RDW 12.8 Plt Count 261 MPV 12.0 Immature Gran % 0.6 Seg Neutrophils % 78.0 Lymphocytes % 16.6 Monocytes % 4.2 Eosinophils % 0.3 Basophils % 0.3 Neutrophils # 11.9 H Lymphocytes # 2.5 Monocytes # 0.6 Eosinophils # 0.0 Basophils # 0.1 Urine Color Yellow Urine Clarity Clear Urine pH 6.0 Ur Specific [place] 1.007 L Urine Protein Negative Urine Glucose (UA) Normal Urine Ketones Negative Urine Blood Negative Urine Nitrite Negative Urine Bilirubin Negative Urine Urobilinogen Normal Ur Leukocyte Esterase Negative Ur Culture Indicated? NO Urine Opiates Screen Negative Ur Barbiturates Screen Negative Ur Phencyclidine Scrn Negative Ur Amphetamines Screen Negative U Benzodiazepines Scrn Negative Urine Cocaine Screen Negative U Marijuana (THC) Screen Negative Baby's Blood Type Mother's Blood Type Rhogam Indicated 10/29/17 10/30/17 13:30 04:09 WBC 13.8 H RBC 3.79 L Hgb 11.7 D Hct 35.2 L MCV 92.9 MCH 30.9 MCHC 33.2 RDW 12.7 Plt Count 256 MPV 12.3 Immature Gran % 0.7 Seg Neutrophils % 66.3 Lymphocytes % 27.3 Monocytes % 4.5 Eosinophils % 0.8 Basophils % 0.4 Neutrophils # 9.1 H Lymphocytes # 3.8 Monocytes # 0.6 Eosinophils # 0.1 Basophils # 0.1 Urine Color Urine Clarity Urine pH Ur Specific [place] Urine Protein Urine Glucose (UA) Urine Ketones Urine Blood Urine Nitrite Urine Bilirubin Urine Urobilinogen Ur Leukocyte Esterase Ur Culture Indicated? Urine Opiates Screen Ur Barbiturates Screen Ur Phencyclidine Scrn Ur Amphetamines Screen U Benzodiazepines Scrn Urine Cocaine Screen U Marijuana (THC) Screen Baby's Blood Type O RH POSITIVE Mother's Blood Type B RH NEGATIVE Rhogam Indicated YES Labs on day of discharge: Labs from last 24 hours 10/30/17 10/29/17 10/29/17 04:09 13:30 06:50 WBC 13.8 H RBC 3.79 L Hgb 11.7 D Hct 35.2 L MCV 92.9 MCH 30.9 MCHC 33.2 RDW 12.7 Plt Count 256 MPV 12.3 Immature Gran % 0.7 Seg Neutrophils % 66.3 Lymphocytes % 27.3 Monocytes % 4.5 Eosinophils % 0.8 Basophils % 0.4 Neutrophils # 9.1 H Lymphocytes # 3.8 Monocytes # 0.6 Eosinophils # 0.1 Basophils # 0.1 Urine Opiates Screen Negative Ur Barbiturates Screen Negative Ur Phencyclidine Scrn Negative Ur Amphetamines Screen Negative U Benzodiazepines Scrn Negative Urine Cocaine Screen Negative U Marijuana (THC) Screen Negative Baby's Blood Type O RH POSITIVE Mother's Blood Type B RH NEGATIVE Rhogam Indicated YES Date of admission: 10/29/17 08:59 Primary care physician: PCP NONE Consults: 10/29/17 15:55 Consult to Assistant To The President [CONS] Routine Comment: Vaginal delivery, consult needed Discharging clinician: Trang Garcia Anticipated date of discharge: 10/30/17 - Patient Status Disposition: Home, Self-Care Condition: Good Functional capacity at discharge: independent ambulation Overall status at discharge: patient is progressing back to baseline - Discharge Instructions Follow Up With: NONE,PCP [Primary Care Provider] - - Diet and Activity Activity: increase activity as tolerated Diet: advance to your usual diet Hospital Course Reason for admission: active labor Delivery: Episiotomy: midline Laceration: none Other procedures: none complications: none Discharge diagnosis: IUP at term delivered [place] baby: male Hospital course: - Delivery Date: 10/29/17 Provider: Philippe Callahan Intrapartum events: other(please specify) ( bradycardia category 2 strip) Delivery induction: none Delivery augmentation: rupture of membranes Delivery monitor: external FHT, external uterine Anesthesia: epidural Estimated Blood Loss: 100 - (s) Infant A Delivery Date: 10/29/17 Infant Delivery Time: 12:45 Presentation: vertex Position: DMITRY Route of delivery: vacuum extraction Gender: Male Viability: Viable Pounds: 6 Ounces: 0 Weight Gram: 0 g at 1 minute: 8 at 5 mins: 9 Shoulder Dystocia: not encountered Shoulder Dystocia Maneuvers: Flakita maneuver Specimens collected: cord blood Placenta: spontaneous Cord: nuchal cord (X3), nuchal reduced - Repair Episiotomy: midline - Complications Delivery complications: none Delivery comments: Patient is a 27-year-old 2 para 0010 at 39-0/7 weeks who presented in active labor. Patient was 4 cm on admission and made progression on her own to 5-6 in greatest patient received an epidural she was artificially ruptured when she was 65 with clear fluid patient was progressing nicely she got to anterior lip and we had bradycardia down to 7080s not coming back up. We were able to reduce the cervical lip tones were not coming up patient was pushing effectively decide this time we would do a vacuum extraction since we can get the baby out faster this way versus section. Patient placed in lithotomy position in midline episiotomy was cut and vacuum was applied and we delivered a viable male infant in right occiput anterior presentation at 1245. There was nuchal cord 3 which was loose and reduced there was no meconium the was bulb suctioned on the abdomen. Apgars were 8 at 1 minute, 9 at times , infant weight was 6 lbs. 0 oz. Placenta was then delivered spontaneously 3 vessel cord, health promotion officer Dr. Callahan, warehouse administrative assistant Padma Damon PGY1, anesthesia epidural estimated blood loss 100 mL. Midline episiotomy was repaired with a 3-0 Vicryl in usual fashion cervix and vagina was visualized intact. Patient will be observed 2 hours before being taken to the floor. - Disposition Mom disposition: stable in Patient has had no complications. Patient is voiding, appetite good, able to ambulate, mild lochia. Patient is stable and ready for discharge. Time Attestation: Total time spent providing and/or coordinating discharge services: Exam - Constitutional Vitals: Temp Pulse Resp BP Pulse Ox 97.9 F 65 12 115/69 97 10/30/17 07:52 10/30/17 07:52 10/30/17 07:52 10/30/17 07:52 10/30/17 07:52 General appearance IM: pleasant, no acute distress - Respiratory Respiratory exam: Present: CTAB - Cardiovascular Cardiovascular exam IM: Present: RRR - GI/Abdominal GI/Abdominal exam IM: normal bowel sounds - Uterine Tone: Firm Uterus Position: 2 Fingers Below Umbilicus - Extremities Exam Extremities exam IM: Present: normal inspection - Neurological Exam Neurological exam: alert, no focal deficits
[2017-10-30] MEDS ORDERED: Benzocaine/Menthol 56 GM AEROSOL SPRAY TP PRN (10:20)
== END 2017-10-30 15:40 | disposition home or self-care (01) | DRG 775 ==
LOC: 1NENULAB → 1NENUOBS 15:48
PROVIDERS: ADMIT Obstetrics & Gynecology; ATTEND Obstetrics & Gynecology

== ENCOUNTER 2021-03-21 14:10 | Inpatient (IN) ==
[~2021-03-21 14:10] MED LIST changes: -*HR* FentaNYL (PF) 100 MCG/2 ML VIAL EP ONE; -*HR* FentaNYL (PF) 100 MCG/2 ML VIAL ONE; +*HR* Nalbuphine 10 MG/ML AMPUL IV PRN; -Epidural Premix (fent/bupiv) 110 ML EP ONE; -Epidural Premix (fent/bupiv) 110 ML EP SCH; -Mag Hydrox/Al Hydrox/Simeth 30 ML UDC PO PRN; +Metoclopramide 10 MG/2 ML VIAL IVP PRN; +Ondansetron 4 MG/2 ML VIAL IVP PRN
[2021-03-21] MEDS ORDERED: D5% in Lactated Ringers 1,000 ML IVC SCH (14:15)
[2021-03-21] MEDS ORDERED: Oxytocin 20 units/ LR 1000 mL 20 UNIT/1,000 ML BAG IVC SCH (14:15)
[2021-03-21] MEDS ORDERED: EPHEDrine 50 MG/ML VIAL IVP PRN (14:22)
[2021-03-21] MEDS ORDERED: Epidural Premix (fent/bupiv) 110 ML EP SCH (14:30)
[2021-03-21 15:26] LABS: Eosinophils % 0.4 %; Hemoglobin 14.8 g/dL (11.5-15.4); Mean Corpuscular Volume 96.1 fL (83.0-100.0)
[2021-03-21 15:28] LABS: Basophils # 0.1 K/mcL (0.0-0.2); Basophils % 0.5 %; Hematocrit 43.9 % (35.3-44.9); Immature Granulocytes % 0.5 % (0-4); Immature Platelets 23.7 % (1.1-6.1); Lymphocytes % 26.7 %; Mean Corpuscular HGB Conc 33.7 g/dL (31.6-35.5); Mean Corpuscular Hemoglobin 32.4 pg (28.0-33.3); Mean Platelet Volume 13.4 fL (9.4-12.4); Monocytes # 0.6 K/mcL (0.0-1.3); Monocytes % 6.3 %; Platelet Count 143 K/mcL (140-400); Red Blood Count 4.57 M/mcL (3.82-4.97); Segmented Neutrophils % 65.6 %; White Blood Count 9.5 K/mcL (4.3-11.1)
[2021-03-21 15:30] LABS: Lymphocytes # 2.5 K/mcL (0.6-4.6); Neutrophils # 6.2 K/mcL (1.6-8.9)
[2021-03-21 15:31] LABS: Amphetamine Screen,Urine Negative ng/mL (Cutoff=1000); Barbiturate Screen,Urine Negative ng/mL (Cutoff=200); Benzodiazepines Screen,Urine Negative ng/mL (Cutoff=200); Cannabinoid Screen,Urine Negative ng/mL (Cutoff = 50); Cocaine Screen,Urine Negative ng/mL (Cutoff= 300); Opiate Screen,Urine Negative ng/mL (Cutoff=300); Phencyclidine Screen,Urine Negative ng/mL (Cutoff=25)
[2021-03-21] MEDS ORDERED: Penicillin G Potassium 5,000,000 UNIT in 0.9 % Sodium Chloride Mini Bag 100 ML IVPB ONE (15:51)
[2021-03-21] MEDS ORDERED: Ringers Solution, Lactated 1,000 ML ONE (16:31)
[2021-03-21] MEDS ORDERED: Ringers Solution, Lactated 1,000 ML IVC SCH (17:00)
[2021-03-22] MEDS ORDERED: *HR* FentaNYL (PF) 100 MCG/2 ML VIAL ONE (00:52)
[2021-03-22] MEDS ORDERED: Bupivacaine-MPF 0.25% 10 ML VIAL ONE (01:36)
[2021-03-22] MEDS ORDERED: Ropivacaine/PF 0.2% 20 ML VIAL ONE (01:36)
[2021-03-22] MEDS ORDERED: Rho Immune Globulin 1,500 UNIT SYRINGE IM PRN (03:50)
[2021-03-22] MEDS ORDERED: Acetaminophen 325 MG TABLET PO PRN (03:50)
[2021-03-22] MEDS ORDERED: Oxytocin 20 units/ LR 1000 mL 20 UNIT/1,000 ML BAG IVC ONE (03:50)
[2021-03-22] MEDS ORDERED: Oxytocin 20 units/ LR 1000 mL 20 UNIT/1,000 ML BAG IVC SCH (04:00)
[2021-03-22] MEDS: Penicillin G Potassium 2,500,000 UNIT in 0.9 % Sodium Chloride 100 ML IVPB SCH ×2 (04:00→04:01)
[2021-03-22] MEDS: Prenatal Vit/FA 1 EACH TABLET PO SCH (08:34)
[2021-03-22] MEDS: Ibuprofen 600 MG TABLET PO PRN ×3 (08:34→22:42)
[2021-03-22] MEDS ORDERED: Benzocaine/Menthol 56 GM AEROSOL SPRAY TP PRN (13:49)
[2021-03-23] MEDS: Ibuprofen 600 MG TABLET PO PRN (07:00)
[2021-03-23 07:50] VITALS: BP 130/67
[2021-03-23] MEDS: Prenatal Vit/FA 1 EACH TABLET PO SCH (08:49)
== END 2021-03-23 15:00 | disposition home or self-care (01) | DRG 806 ==
LOC: 1NENULAB → 1NENUOBS 03-22 07:57
PROVIDERS: ADMIT Obstetrics & Gynecology; ATTEND Obstetrics & Gynecology